=== PATIENT | female | born 1955 | race Caucasian/White ===

== ENCOUNTER 2018-05-19 14:32 | Outpatient (CLI) | payer MEDICARE ==
--- NOTE | 2018-05-19 17:42 | ULT ---
CAROTID DUPLEX SONOGRAM 05/19/18 HISTORY: Vascular disease. TIA. FINDINGS: RIGHT: Color and spectral doppler evaluation, peak systolic velocity of 105 cm/s and IC to CC ratio of 1.0 s uggests no hemodynamically significant stenosis within the extracranial right ICA. Antegrade flow wit hin the vertebral artery. LEFT: Color and spectral doppler evaluation, peak systolic velocity of 63 cm/s, and IC to CC ratio of 0.6 s uggests no hemodynamically significant stenosis within the extracranial left ICA. Antegrade flow with in the vertebral artery. IMPRESSION: No sonographic evidence of significant extracranial ICA stenosis. POS: HANK
--- NOTE | 2018-05-19 19:06 | MRI ---
MRI OF BRAIN PERFORMED WITHOUT CONTRAST ENHANCEMENT: 05/19/18 HISTORY: Aphasia approximately a week and a half ago. The ventricular and cisternal system shows fairly age appropriate change. There is fairly prominent T 2 and FLAIR areas of hyperintensity within the white matter consistent with some chronic white matter change. On the diffusion weighted sequence, I do not see any signs that would suggest an acute infar ct. No intra or extra-axial masses are identified. No signs of hemorrhage. The pituitary is normal in size. Mastoid air cells are clear. There is moderate mucosal change in the left maxillary sinus. IMPRESSION: Chronic appearing white matter change. No acute intracranial abnormalities. POS: H
== END 2018-05-19 14:33 | disposition home or self-care (01) ==
LOC: SCSULT 14:32
PROVIDERS: ATTEND Family Medicine
DX: R47.01 Aphasia (principal); I10 Essential (primary) hypertension; E78.49 Other hyperlipidemia
CPT/HCPCS: 70551; 93880